=== PATIENT | male | born 1955 | race African-American/Black ===

== ENCOUNTER 2018-12-30 11:04 | Emergency (ER) | payer OTHER ==
[~2018-12-30] VITALS: Ht 180.3 cm; Wt 77.3 kg
[2018-12-30] MEDS ORDERED: P MEDS (11:12)
[2018-12-30] MEDS ORDERED: [UNRECOGNIZED DRUG - OTHER] (11:12)
[2018-12-30] MEDS ORDERED: [UNRECOGNIZED DRUG - OTHER] (11:12)
[2018-12-30] MEDS ORDERED: TETRACAINE 0.5% OPHTH SOLN 4ML OD ONE (11:45)
[2018-12-30] MEDS ORDERED: FLUORESCEIN OPHTH 1 MG STRIP OD ONE (11:45)
[2018-12-30] MEDS ORDERED: ADACEL/BOOSTRIX VACCINE (DIPHTH/PERTUSS/ACELL/TETANUS)0.5ML SYR (90715) IM ONE (12:00)
[2018-12-30 12:35] VITALS: BP 188/91
[2019-01-09] MEDS ORDERED: HYDR25TAB PO (19:46)
[2019-01-09] MEDS ORDERED: AMLO5TAB6 PO (19:46)
[2019-01-09] MEDS ORDERED: MIRT1TAB15 PO (19:46)
== END 2018-12-30 12:32 | disposition home or self-care (01) ==
LOC: M ED 11:04
DX: T15.01XA Foreign body in cornea, right eye, initial encounter (principal); W31.1XXA Contact with metalworking machines, initial encounter; Y92.89 Other specified places as the place of occurrence of the external cause; I10 Essential (primary) hypertension; F17.210 Nicotine dependence, cigarettes, uncomplicated; Z88.6 Allergy status to analgesic agent